=== PATIENT | male | born 1985 | race Two or more races ===

== ENCOUNTER 2017-05-15 23:13 | Emergency (ER) | payer BC ==
[~2017-05-15] VITALS: Ht 170.2 cm; Wt 83.9 kg
[2017-05-15 23:30] VITALS: BP 118/77
[2017-05-16] MEDS ORDERED: DEXAMETHASONE SOD PHOS 20 MG/5 ML VIAL. IM ONE
[2017-05-16] MEDS ORDERED: IBUPROFEN 800 MG TABLET. PO ONE
[2017-05-16] MEDS ORDERED: ACETAMINOPHEN 500 MG TABLET PO ONE
[2017-05-16] MEDS ORDERED: PRED50TA PO (00:18)
--- NOTE | 2017-05-16 00:19 | PHYS DOC ---
Adult General Chief Complaint Chief Complaint: SORE THROAT HPI HPI Patient is a 31 year old male who presents with a sore throat for 2 days. Patient is also complaining of a fever. Patient was seen at urgent care today and was started on amoxicillin. The was in the ED today with a positive strep test and received Decadron injection and discharged with prednisone and family states she is feeling better. Patient presents to the ED requesting the same treatment. Review of Systems Review of Systems Constitutional: fever Eyes: Denies change in visual acuity, redness, or eye pain [] HENT: Reports sore throat. Denies nasal congestion Respiratory: Denies cough or shortness of breath [] Cardiovascular: No additional information not addressed in HPI [] GI: Denies abdominal pain, nausea, vomiting, bloody stools or diarrhea [] : Denies dysuria or hematuria [] Musculoskeletal: Denies back pain or joint pain [] Integument: Denies rash or skin lesions [] Neurologic: Denies headache, focal weakness or sensory changes [] dipsia [] All other systems were reviewed and found to be within normal limits, except as documented in this note. Current Medications Current Medications Current Medications Medications (Trade) Dose Ordered Sig/Wili Start Time Stop Time Status Last Admin Dose Admin Acetaminophen (Tylenol) 1,000 mg 1X ONCE 05/16/17 00:00 05/16/17 00:04 DC Dexamethasone Sodium Phosphate (Decadron) 10 mg 1X ONCE 05/16/17 00:00 05/16/17 00:03 DC Ibuprofen (Motrin) 800 mg 1X ONCE 05/16/17 00:00 05/16/17 00:04 DC Allergies Allergies Allergies Coded Allergies Type Severity Reaction Last Updated Verified No Known Drug Allergies 05/16/17 No Physical Exam Physical Exam Constitutional: Well developed, well nourished, no acute distress, non-toxic appearance. [] HENT: Normocephalic, atraumatic, bilateral external ears normal, oropharynx moist, nose normal. [] +2 tonsils with mild erythema and exudate bilaterally. Midline uvula. +2 anterior cervical adenopathy. Eyes: PERRLA, EOMI, conjunctiva normal, no discharge. [] Neck: Normal range of motion, no tenderness, supple, no stridor. [] Cardiovascular:Heart rate regular rhythm, no murmur [] Lungs & Thorax: Bilateral breath sounds clear to auscultation [] Abdomen: Bowel sounds normal, soft, no tenderness, no masses, no pulsatile masses. [] Skin: Warm, dry, no erythema, no rash. [] Back: No tenderness, no CVA tenderness. [] Extremities: No tenderness, no cyanosis, no clubbing, ROM intact, no edema. [] Neurologic: Alert and oriented X 3, normal motor function, normal sensory function, no focal deficits noted. [] Psychologic: Affect normal, judgement normal, mood normal. [] EKG EKG [] Radiology/Procedures Radiology/Procedures [] Course & Med Decision Making Course & Med Decision Making Pertinent Labs and Imaging studies reviewed. (See chart for details) Patient is in the ED with strep infection. He was started on antibiotics today. He presents today requesting a Decadron injection as well as prednisone for home use because the was in the ED earlier today and was given the same medications and she is feeling better. Patient was given Decadron on discharge and prednisone. Instructed to complete the amoxicillin. Saltwater gargles recommended. Tylenol /Motrin for pain or fever. He did have a temp of 100.1 and was given Tylenol and Motrin. He was provided return precautions and discharged in stable condition. Dragon Disclaimer Dragon Disclaimer This electronic medical record was generated, in whole or in part, using a voice recognition dictation system. Departure Departure Impression: Primary Impression: Streptococcal pharyngitis Additional Impression: Fever Disposition: 01 HOME, SELF-CARE Condition: STABLE Referrals: UNKNOWN PCP NAME (PCP) follow up with your doctor in one week Patient Instructions: Fever, Adult, Strep Throat Additional Instructions: You were seen with strep infection. Continue taking the current antibiotics until completed. Take Tylenol every 4 hours and Motrin every 6 hours as needed for pain or fever. Use saltwater gargles for sore throat. Complete the prednisone. Follow-up with your doctor in one week. Come back to the ED symptoms if worsen. Scripts Prednisone (PREDNISONE) 50 Mg Tablet 1 TAB PO DAILY, #4 TAB Prov: MONA HOWARD APRN 05/16/17 Problem Qualifiers Additional Impression: Fever Fever type: unspecified Qualified Codes: R50.9 - Fever, unspecified MUTZEVMONA APRN May 16, 2017 00:19
== END 2017-05-16 00:40 | disposition home or self-care (01) ==
LOC: ER 23:13
DX: J02.0 Streptococcal pharyngitis (principal)
CPT/HCPCS: 96372; 99283; J1100

== ENCOUNTER 2018-07-31 08:31 | Emergency (ER) | payer BC ==
[~2018-07-31] VITALS: Ht 165.1 cm; Wt 83.9 kg
[~2018-07-31 08:31] MED LIST: PRED50TA PO
[2018-07-31 08:41] VITALS: BP 133/68
[2018-07-31] MEDS ORDERED: PENICILLIN G BENZATHINE LA 1,200,000 UNIT/2 ML DISP.SYRIN. IM ONE (08:45)
[2018-07-31] MEDS ORDERED: DEXAMETHASONE SOD PHOS 20 MG/5 ML VIAL. IM ONE (08:45)
[2018-07-31] MEDS ORDERED: IBUP-1060 PO (08:47)
--- NOTE | 2018-07-31 08:48 | PHYS DOC ---
Past Medical History Past Medical History: No Pertinent History Past Surgical History: No Surgical History Alcohol Use: None Drug Use: None Adult General Chief Complaint Chief Complaint: SORE THROAT HPI HPI Patient is a 32 year old [place] male who presents with sore throat that started yesterday. Getting worse over time. Increased pain with swallowing. Subjective fever, home temperature was not taken. No nasal congestion. No neck stiffness.[] Review of Systems Review of Systems Constitutional: Denies fever or chills [] Eyes: Denies change in visual acuity, redness, or eye pain [] HENT: Denies nasal congestion, see history of present illness[] Respiratory: Denies cough or shortness of breath [] Cardiovascular: No chest pain[] GI: Denies abdominal pain, nausea, vomiting, bloody stools or diarrhea [] : Denies dysuria or hematuria [] Musculoskeletal: Denies back pain or joint pain [] Integument: Denies rash or skin lesions [] Neurologic: Denies headache, focal weakness or sensory changes [] Endocrine: Denies polyuria or polydipsia [] All other systems were reviewed and found to be within normal limits, except as documented in this note. Allergies Allergies Allergies Coded Allergies Type Severity Reaction Last Updated Verified No Known Drug Allergies 05/16/17 No Physical Exam Physical Exam Constitutional: Well developed, well nourished, no acute distress, non-toxic appearance. [] HENT: Normocephalic, atraumatic, bilateral external ears normal, oropharynx moist, enlarged tonsils with exudate, uvula is midline, nose normal. [] Eyes: PERRLA, EOMI, conjunctiva normal, no discharge. [] Neck: Normal range of motion, no tenderness, supple, no stridor. Anterior chain lymphadenopathy is present bilaterally, no nuchal rigidity [] Cardiovascular:Heart rate regular rhythm, no murmur [] Lungs & Thorax: Bilateral breath sounds clear to auscultation [] Abdomen: Bowel sounds normal, soft, no tenderness, no masses, no pulsatile masses. No hepato-or splenomegaly [] Skin: Warm, dry, no erythema, no rash. [] Back: No tenderness, no CVA tenderness. [] Extremities: No tenderness, no cyanosis, no clubbing, ROM intact, no edema. [] Neurologic: Alert and oriented X 3, normal motor function, normal sensory function, no focal deficits noted. [] Psychologic: Affect normal, judgement normal, mood normal. [] EKG EKG [] Radiology/Procedures Radiology/Procedures [] Course & Med Decision Making Course & Med Decision Making Pertinent Labs and Imaging studies reviewed. (See chart for details) ED course and Medical decision making: Patient appears to have an exudative pharyngitis, offered either oral anabiotic sore IM antibiotics and patient elected for the IM antibiotics. Giving a dose of Decadron to help with the swelling in the acute phase.[] Dragon Disclaimer Dragon Disclaimer This electronic medical record was generated, in whole or in part, using a voice recognition dictation system. Departure Departure Impression: Primary Impression: Exudative pharyngitis Disposition: HOME, SELF-CARE Condition: IMPROVED Referrals: UNKNOWN PCP NAME (PCP) Patient Instructions: Viral and Bacterial Pharyngitis Additional Instructions: Drink plenty of fluids. Follow-up with your regular doctor in 2 days. If you do not have regular doctor a list of local low-cost clinics will be provided for you. The antibiotics that you were given as an intramuscular shot will last the entire time of the infection. You should not need oral antibiotics. Return to the ER if worsening pain, difficulty breathing, or any other concerns. Scripts Ibuprofen (IBUPROFEN) 800 Mg Tablet 800 MG PO PRN TID PRN for pain or fever, #20 TAB take with food or milk to avoid upsetting stomach Prov: RALPH PIERRE DO 07/31/18 RALPH PIERRE DO Jul 31, 2018 08:48
== END 2018-07-31 09:25 | disposition home or self-care (01) ==
LOC: ER 08:31
DX: J02.9 Acute pharyngitis, unspecified (principal); R13.10 Dysphagia, unspecified; R50.9 Fever, unspecified; R59.0 Localized enlarged lymph nodes
CPT/HCPCS: 96372; 99283; J0561; J1100

== ENCOUNTER 2019-08-23 23:38 | Emergency (ER) | payer BC ==
[~2019-08-23] VITALS: Ht 167.6 cm; Wt 87.1 kg
[~2019-08-23 23:38] MED LIST changes: +IBUP-1060 PO
[2019-08-24] MEDS ORDERED: CIPR2.5D LEFT EAR
--- NOTE | 2019-08-24 00:02 | PHYS DOC ---
Past Medical History Past Medical History: No Pertinent History (STEPHANIE GAGR APRN) Past Surgical History: Appendectomy (STEPHANIE GARG APRN) Smoking Status: Never Smoker Alcohol Use: None Drug Use: None (STEPHANIE GARG APRN) Attending Signature I have participated in the care of this patient and I have reviewed and agree w ith all pertinent clinical information above including history, exam, and recommendations. (ROSS DALLAS MD) Adult General Chief Complaint Chief Complaint: SORE THROAT HPI HPI Patient is a 33 year old male who presents with sore throat, chills this been ongoing since yesterday. The patient also complains of left ear pain. The patient denies running a fever at home. The patient denies shortness of breath. Complete ROS were reviewed and found to be within normal limits, except as documented in the HPI (STEPHANIE GARG APRN) Current Medications Current Medications Current Medications Medications (Trade) Dose Ordered Sig/Wili Start Time Stop Time Status Last Admin Dose Admin Dexamethasone (Decadron) 10 mg 1X ONCE 08/24/19 00:30 08/24/19 00:31 DC 08/24/19 00:25 10 MG Penicillin G Benzathine (Bicillin L-A) 1,200,000 unit 1X ONCE 08/24/19 00:45 08/24/19 00:34 DC 08/24/19 00:25 1,200,000 UNIT (ROSS DALLAS MD) Allergies Allergies Allergies Coded Allergies Type Severity Reaction Last Updated Verified No Known Drug Allergies 05/16/17 No (ROSS DALLAS MD) Physical Exam Physical Exam Constitutional: Well developed, well nourished, no acute distress, non-toxic appearance. [] HENT: Normocephalic, atraumatic, bilateral left external ear is erythematous, oropharynx moist, tonsils are 3/4+ with oral exudates, nose normal. [] Neurologic: Alert and oriented X 3, normal motor function, normal sensory fun ction, no focal deficits noted. [] Psychologic: Affect normal, judgement normal, mood normal. [] (STEPHANIE GARG APRN) Current Patient Data Vital Signs Vital Signs Date Time Temp Pulse Resp B/P (MAP) Pulse Ox O2 Delivery O2 Flow Rate FiO2 08/24/19 00:10 98.2 97 18 146/80 (102) 97 Room Air 98.2 (ROSS DALLAS MD) Lab Values Laboratory Tests Test 08/24/19 00:01 Influenza Type A Antigen Negative (NEGATIVE) Influenza Type B Antigen Negative (NEGATIVE) Group A Streptococcus Rapid Positive (NEGATIVE) (ROSS DALLAS MD) EKG EKG [] (STEPHANIE GARG APRN) Radiology/Procedures Radiology/Procedures [] (STEPHANIE GARG APRN) Course & Med Decision Making Course & Med Decision Making Pertinent Labs and Imaging studies reviewed. (See chart for details) We will get a strep test and flu test on the patient. The patient also has otitis externa and will put on Cipro eardrops for that. Strep is positive will give penicillin IM shot in the ER. (STEPHANIE GARG APRN) Dragon Disclaimer Dragon Disclaimer This electronic medical record was generated, in whole or in part, using a voice recognition dictation system. (STEPHANIE GARG APRN) Departure Departure Impression: Primary Impression: Otitis externa of left ear Additional Impression: Streptococcal pharyngitis Disposition: HOME, SELF-CARE Condition: STABLE Referrals: NO PCP (PCP) Patient Instructions: Otitis Externa Additional Instructions: Thank you for visiting [facility]. We appreciate you trusting us with your care. If any additional problems come up don't hesitate to return to visit us. Please follow up with your primary care provider so they can plan a dditional care if needed and know about the problem that you had. If symptoms worsen come back to the Emergency Department. Any concerning symptoms that start such as chest pain, shortness of air, weakness or numbness on one side of the body, running high fevers or any other concerning symptoms return to the ER. Please take your eardrops as prescribed, you were given a penicillin IM shot in the ER that should clear up your strep throat. Scripts Ciprofloxacin Hcl (CIPROFLOXACIN HCL) 2.5 Ml Drops 3 DROP LEFT EAR BID for 10 Days, #1 BOTTLE 0 Refills Please dispense Cipro eye drops to use for ear. Prov: STEPHANIE GARG APRN 08/24/19 Problem Qualifiers Primary Impression: Otitis externa of left ear Otitis externa type: unspecified type Chronicity: acute Qualified Codes: H60.502 - Unspecified acute noninfective otitis externa, left ear STEPHANIE GARG APRN Aug 24, 2019 00:02 ROSS DALLAS MD Aug 24, 2019 21:39
[2019-08-24 00:10] VITALS: BP 146/80
[2019-08-24] MEDS ORDERED: DEXAMETHASONE 4 MG TABLET PO ONE (00:30)
[2019-08-24 00:33] LABS: INFLUENZA A PATIENT NEGATIVE (NEGATIVE); INFLUENZA B PATIENT NEGATIVE (NEGATIVE)
[2019-08-24] MEDS ORDERED: PENICILLIN G BENZATHINE LA 1,200,000 UNIT/2 ML DISP.SYRIN. IM ONE (00:45)
== END 2019-08-24 00:30 | disposition home or self-care (01) ==
LOC: ER 23:38
DX: J02.0 Streptococcal pharyngitis (principal); B96.89 Other specified bacterial agents as the cause of diseases classified elsewhere; H60.502 Unspecified acute noninfective otitis externa, left ear; L53.9 Erythematous condition, unspecified; Z90.89 Acquired absence of other organs
CPT/HCPCS: 87804; 87880; 96372; 99283; J0561; J8540